=== PATIENT | female | born 1970 | race Asian ===

== ENCOUNTER 2017-11-11 08:58 | Emergency (ER) | payer BC ==
[2017-11-11 09:08] VITALS: TEMP 97.9
[2017-11-11] MEDS ORDERED: SODIUM CHLORIDE 0.9% 500 ML IV STA (09:30)
--- NOTE | 2017-11-11 09:42 | ED ---
Extremity Problem HPI - General Chief complaint: Extremity Problem,Nontraumatic Stated complaint: Left Arm Numbness Time Seen by Provider: 11/11/17 09:10 Source: patient Mode of arrival: ambulatory Limitations: no limitations - History of Present Illness Initial comments: 47-year-old female patient presents the emergency department today for evaluation of increased numbness and tingling to the left arm. The patient states that approximately 0806 this morning she had onset of numbness and tingling to the left medial arm. Patient states that the sensation extended from about the mid upper arm down to the hand involving the last 3 fingers. Patient states that the sensation lasted for approximately 2 minutes. States that she was speaking to her during this time and had no difficulty with speech. She states that she did not have any evident weakness of the arm. She denies any headache, dizziness, facial numbness or tingling, blurred vision , or double vision. Patient does have a history of hypertension and neck problems with cervical radiculopathy; she states that the sensation is different from her usual numbness and tingling. Patient denies any recent rash , fever, chills, shortness breath, chest pain, abdominal pain, nausea, vomiting , diarrhea, constipation, back pain, hematuria, dysuria, urinary urgency, urinary frequency, or any other complaints. - Related Data Home Medications Medication Instructions Recorded Confirmed Hydrochlorothiazide [Hydrodiuril] 25 mg PO DAILY 11/11/17 11/11/17 Metoprolol Tartrate [Lopressor] 100 mg PO BID 11/11/17 11/11/17 Allergies Allergy/AdvReac Type Severity Reaction Status Date / Time No Known Allergies Allergy Verified 11/11/17 09:08 Review of Systems ROS Statement: Those systems with pertinent positive or pertinent negative responses have been documented in the HPI. ROS Other: All systems not noted in ROS Statement are negative. Past Medical History Past Medical History: Hypertension Additional Past Medical History / Comment(s): neck injury History of Any Multi-Drug Resistant Organisms: None Reported Past Surgical History: Section Past Psychological History: No Psychological Hx Reported Smoking Status: Never smoker Past Alcohol Use History: None Reported Past Drug Use History: None Reported General Exam Limitations: no limitations General appearance: alert, in no apparent distress, other (This is a well- developed, well-nourished adult female patient in no acute distress. Vital signs upon presentation are temperature 97.9F, pulse 87, respirations 16, blood pressure 154/79, pulse ox 98% on room air.) Eye exam: Present: normal appearance, PERRL, EOMI. Absent: scleral icterus, conjunctival injection, periorbital swelling ENT exam: Present: normal exam, normal oropharynx, mucous membranes moist Respiratory exam: Present: normal lung sounds bilaterally. Absent: respiratory distress, wheezes, rales, rhonchi, stridor Cardiovascular Exam: Present: regular rate, normal rhythm, normal heart sounds. Absent: systolic murmur, diastolic murmur, rubs, gallop, clicks GI/Abdominal exam: Present: soft, normal bowel sounds. Absent: distended, tenderness, guarding, rebound, rigid Neurological exam: Present: alert, oriented X3, CN II-XII intact Expanded Speech: Present: fluid speech Cranial nerves: EOM's Intact: Normal, Tongue Deviation: Normal, Nystagmus: Normal, Facial Sensation: Normal Motor strength exam: RUE: 5, LUE: 5, RLE: 5, LLE: 5 Eye Response: (4) open spontaneously Motor Response: (6) obeys commands Verbal Response: (5) oriented Randi Total: 15 Psychiatric exam: Present: normal affect, normal mood Skin exam: Present: warm, dry, intact, normal color. Absent: rash Course Vital Signs 11/11/17 09:03 Temperature 97.9 F Pulse Rate 87 Respiratory 16 Rate Blood Pressure 154/79 O2 Sat by Pulse 98 Oximetry Medical Decision Making - Medical Decision Making 47-year-old female patient presented to the emergency department today for evaluation of numbness and tingling to the medial aspect of the left arm. Patient symptoms lasted for approximately 2 minutes and resolved. Physical examination at this time is unremarkable. Patient is neurologically intact with no current signs or symptoms of CVA. Labs reviewed and did reveal a mildly elevated blood sugar at 157 and mildly elevated liver enzymes. CT of the brain was performed, showed no acute intracranial abdomen ALLERGIES. Patient was informed of all results. She is instructed to follow-up with her primary care physician for possible carotid ultrasound and echo. She is instructed to inform her physician of her elevated blood sugar and liver enzymes have retesting done. Patient was educated regarding TIA. Return parameters were discussed in detail. She verbalizes understanding and agrees with this plan. - Lab Data Result diagrams: 11/11/17 10:01 11/11/17 09:59 Lab Results 11/11/17 11/11/17 11/11/17 Range/Units 09:59 09:59 10:01 WBC 10.5 (3.8-10.6) k/uL RBC 4.71 (3.80-5.40) m/uL Hgb 12.8 (11.4-16.0) gm/dL Hct 40.1 (34.0-46.0) % MCV 85.0 (80.0-100.0) fL MCH 27.1 (25.0-35.0) pg MCHC 31.9 (31.0-37.0) g/dL RDW 14.4 (11.5-15.5) % Plt Count 409 (150-450) k/uL Neutrophils % 78 % Lymphocytes % 15 % Monocytes % 4 % Eosinophils % 1 % Basophils % 0 % Neutrophils # 8.1 H (1.3-7.7) k/uL Lymphocytes # 1.6 (1.0-4.8) k/uL Monocytes # 0.4 (0-1.0) k/uL Eosinophils # 0.1 (0-0.7) k/uL Basophils # 0.0 (0-0.2) k/uL PT (9.0-12.0) sec INR (<1.2) APTT (22.0-30.0) sec Sodium 138 (137-145) mmol/L Potassium 3.5 (3.5-5.1) mmol/L Chloride 103 (98-107) mmol/L Carbon Dioxide 27 (22-30) mmol/L Anion Gap 8 mmol/L BUN 11 (7-17) mg/dL Creatinine 0.70 (0.52-1.04) mg/dL Est GFR (CKD-EPI)AfAm >90 (>60 ml/min/1.73 sqM) Est GFR (CKD-EPI)NonAf >90 (>60 ml/min/1.73 sqM) Glucose 157 H (74-99) mg/dL Calcium 9.0 (8.4-10.2) mg/dL Total Bilirubin 0.5 (0.2-1.3) mg/dL AST 46 H (14-36) U/L ALT 66 H (9-52) U/L Alkaline Phosphatase 73 (38-126) U/L Total Creatine Kinase 59 (30-135) U/L CK-MB (CK-2) 0.3 (0.0-2.4) ng/mL CK-MB (CK-2) Rel Index 0.5 Troponin I <0.012 (0.000-0.034) ng/mL Total Protein 7.0 (6.3-8.2) g/dL Albumin 3.6 (3.5-5.0) g/dL 11/11/17 Range/Units 10:01 WBC (3.8-10.6) k/uL RBC (3.80-5.40) m/uL Hgb (11.4-16.0) gm/dL Hct (34.0-46.0) % MCV (80.0-100.0) fL MCH (25.0-35.0) pg MCHC (31.0-37.0) g/dL RDW (11.5-15.5) % Plt Count (150-450) k/uL Neutrophils % % Lymphocytes % % Monocytes % % Eosinophils % % Basophils % % Neutrophils # (1.3-7.7) k/uL Lymphocytes # (1.0-4.8) k/uL Monocytes # (0-1.0) k/uL Eosinophils # (0-0.7) k/uL Basophils # (0-0.2) k/uL PT 10.2 (9.0-12.0) sec INR 1.0 (<1.2) APTT 24.0 (22.0-30.0) sec Sodium (137-145) mmol/L Potassium (3.5-5.1) mmol/L Chloride (98-107) mmol/L Carbon Dioxide (22-30) mmol/L Anion Gap mmol/L BUN (7-17) mg/dL Creatinine (0.52-1.04) mg/dL Est GFR (CKD-EPI)AfAm (>60 ml/min/1.73 sqM) Est GFR (CKD-EPI)NonAf (>60 ml/min/1.73 sqM) Glucose (74-99) mg/dL Calcium (8.4-10.2) mg/dL Total Bilirubin (0.2-1.3) mg/dL AST (14-36) U/L ALT (9-52) U/L Alkaline Phosphatase (38-126) U/L Total Creatine Kinase (30-135) U/L CK-MB (CK-2) (0.0-2.4) ng/mL CK-MB (CK-2) Rel Index Troponin I (0.000-0.034) ng/mL Total Protein (6.3-8.2) g/dL Albumin (3.5-5.0) g/dL - EKG Data -: EKG Interpreted by Me EKG Comments: EKG obtained at 09 37 shows normal sinus rhythm with prolonged QT interval. Ventricular rate is 82, VA interval 162, QRS duration 86, QT 400, QTC 467. No evidence of ST elevation or depression. - Radiology Data Radiology results: report reviewed, image reviewed CT of the brain without contrast was performed. Central structures are midline. There is no evidence of hydrocephalus. No acute focal lesion, mass effect, or midline shift is seen. I do not see evidence of intracranial blood. Visualized portions of the paranasal sinuses and mastoids are clear. The bony calvarium is intact. Impression by Dr. Gordon shows no acute intracranial abnormality. Disposition Clinical Impression: TIA (transient ischemic attack), Paresthesia Disposition: HOME SELF-CARE Condition: Good Instructions: Transient Ischemic Attack (ED), Paresthesia (ED) Additional Instructions: Continue taking a baby aspirin daily. Follow-up with your primary care physician to discuss further testing such as carotid ultrasound and echo. Return here immediately for any new, worsening, or concerning symptoms. Is patient prescribed a controlled substance at d/c from ED?: No Referrals: Carlos Jamil MD [Primary Care Provider] - 1-2 days Time of Disposition: 11:29
[2017-11-11 10:21] LABS: Basophils % (A) 0 %; Eosinophils # (A) 0.1 k/uL (0-0.7); Eosinophils % (A) 1 %; HCT 40.1 % (34.0-46.0); HGB 12.8 gm/dL (11.4-16.0); Lymphocytes # (A) 1.6 k/uL (1.0-4.8); Lymphocytes % (A) 15 %; MCH 27.1 pg (25.0-35.0); MCHC 31.9 g/dL (31.0-37.0); Mean Platelet Volume 7.2; Monocytes # (A) 0.4 k/uL (0-1.0); Monocytes % (A) 4 %; Neutrophils # (A) 8.1 k/uL (1.3-7.7); Neutrophils % (A) 78 %; Platelet Count 409 k/uL (150-450); RBC 4.71 m/uL (3.80-5.40); RDW 14.4 % (11.5-15.5); WBC 10.5 k/uL (3.8-10.6)
[2017-11-11 10:29] LABS: Prothrombin Time 10.2 sec (9.0-12.0)
[2017-11-11 10:33] LABS: ALT 66 U/L (9-52); AST 46 U/L (14-36); Albumin 3.6 g/dL (3.5-5.0); Alkaline Phosphatase 73 U/L (38-126); Anion Gap 8 mmol/L; Blood Urea Nitrogen 11 mg/dL (7-17); Carbon Dioxide 27 mmol/L (22-30); Chloride 103 mmol/L (98-107); Glucose 157 mg/dL (74-99); Potassium 3.5 mmol/L (3.5-5.1); Sodium 138 mmol/L (137-145); Total Bilirubin 0.5 mg/dL (0.2-1.3)
[2017-11-11 10:47] LABS: Creatine Kinase 59 U/L (30-135)
--- NOTE | 2017-11-11 10:51 | CT ---
EXAMINATION TYPE: CT brain wo con DATE OF EXAM: 11/11/2017 COMPARISON: NONE HISTORY: Lt arm numbness CT DLP: 1034.6 mGycm Automated exposure control for dose reduction was used. FINDINGS: Central structures are midline. There is no evidence of hydrocephalus. No acute focal lesion, mass ef fect or midline shift is seen. I do not see evidence of intracranial blood. Visualized portions of the paranasal sinuses and mastoids are clear. The bony calvarium is intact. IMPRESSION: NO ACUTE INTRACRANIAL ABNORMALITY.
[2017-11-11 11:01] LABS: Creatine Kinase MB 0.3 ng/mL (0.0-2.4); Troponin I <0.012 ng/mL (0.000-0.034)
[2017-11-11 11:58] VITALS: BP 163/90; PULSE 75; RESP 18
== END 2017-11-11 11:59 | disposition home or self-care (01) ==
LOC: EC 08:58
DX: G45.9 Transient cerebral ischemic attack, unspecified (principal); R73.9 Hyperglycemia, unspecified; R94.5 Abnormal results of liver function studies; I10 Essential (primary) hypertension; R40.2142 Coma scale, eyes open, spontaneous, at arrival to emergency department; R40.2252 Coma scale, best verbal response, oriented, at arrival to emergency department; R40.2362 Coma scale, best motor response, obeys commands, at arrival to emergency department; Z79.899 Other long term (current) drug therapy
CPT/HCPCS: 36415; 70450; 80053; 82550; 82553; 84484; 85025; 85610; 85730; 93005; 96360; 96361; 99284

== ENCOUNTER 2017-12-22 15:47 | Emergency (ER) | payer BC ==
--- NOTE | 2017-12-22 17:26 | ED ---
General Adult HPI - General Chief complaint: Skin/Abscess/Foreign Body Stated complaint: poss scabies Time Seen by Provider: 12/22/17 16:44 Source: patient, RN notes reviewed Mode of arrival: ambulatory Limitations: no limitations - History of Present Illness Initial comments: Patient's a 47-year-old female presenting to the emergency room today with a chief complaint of possible scabies infection. 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 Patient states that a few days later she began having bone points to her legs. She states that she noticed small bump. She states they checked the office did not find anything else. She states that she had a regular appointment with the family physician. She states that she was diagnosed with scabies at that time placed on permethrin cream. She states she did do treatment of permethrin. She states she was unclear directions and up to 3 days later as well. She states that she feels that she react to this in the next day felt like things were jumping off of her skin. Patient states that she follow back up with family doctor and was started on ivermectin. Patient states that she is supposed take her second dose in 2 days. Patient states she still experiencing symptoms. She states some of the areas have healed up. She states normally house has become infected. States she did go to [facility] his specialist and was told to continue with current treatments. She states that she called [facility] and spoke with someone who told her that there will be a specialist here to be able to see her. She states this is the reason that she came today. Patient is having difficult time at Night because of the symptoms. Patient denies any recent fever, chills, shortness of breath, chest pain, back pain, abdominal pain , nausea or vomiting, numbness or tingling, headaches or visual changes, or any other complaints. - Related Data Home Medications Medication Instructions Recorded Confirmed Hydrochlorothiazide [Hydrodiuril] 25 mg PO DAILY 11/11/17 11/11/17 Metoprolol Tartrate [Lopressor] 100 mg PO BID 11/11/17 11/11/17 Allergies Allergy/AdvReac Type Severity Reaction Status Date / Time No Known Allergies Allergy Verified 12/22/17 16:08 Review of Systems ROS Statement: Those systems with pertinent positive or pertinent negative responses have been documented in the HPI. ROS Other: All systems not noted in ROS Statement are negative. Past Medical History Past Medical History: Hypertension Additional Past Medical History / Comment(s): neck injury History of Any Multi-Drug Resistant Organisms: None Reported Past Surgical History: Section Past Psychological History: No Psychological Hx Reported Smoking Status: Never smoker Past Alcohol Use History: None Reported Past Drug Use History: None Reported General Exam - General Exam Comments Initial Comments: General: The patient is awake and alert, in no distress, and does not appear acutely ill. Eye: extra-ocular movements are intact. There is normal conjunctiva bilaterally. No signs of icterus. Ears, nose, mouth and throat: There are moist mucous membranes and no oral lesions. Neck: The neck is supple. Musculoskeletal: Normal ROM, no tenderness. Strength 5/5. Sensation intact. Pulses equal bilaterally 2+. Neurological: A&O x 3. CN II-XII intact, There are no obvious motor or sensory deficits. Coordination appears grossly intact. Speech is normal. Skin: Skin is warm and dry and intact. 2 small scabbed areas to the medial aspect of the left ankle. No other rashes or bites visualized. No burrowing. Psychiatric: Cooperative, appropriate mood & affect, normal judgment. Limitations: no limitations Course Vital Signs 12/22/17 16:00 Temperature 98.2 F Pulse Rate 84 Respiratory 18 Rate Blood Pressure 129/75 O2 Sat by Pulse 96 Oximetry Medical Decision Making - Medical Decision Making Patient is advised continue current treatment. Follow-up with both general science teacher and infectious disease. Advised to return to emergency room for any other concerns. Disposition Clinical Impression: Insect bite Disposition: HOME SELF-CARE Condition: Good Instructions: Scabies (ED) Additional Instructions: Please continue his current treatments and follow-up with both general science teacher and infectious disease as needed. Please return to emergency room for any other concerns. Is patient prescribed a controlled substance at d/c from ED?: No Referrals: Carlos Jamil MD [Primary Care Provider] - 1-2 days Carmelo Williamson MD [STAFF PHYSICIAN] - 1-2 days Cecily Lux MD [STAFF PHYSICIAN] - 1-2 days Time of Disposition: 17:25
[2017-12-22 17:56] VITALS: BP 139/70; PULSE 74; RESP 16; TEMP 97.8
== END 2017-12-22 17:55 | disposition home or self-care (01) ==
LOC: EC 15:47
DX: S90.562A Insect bite (nonvenomous), left ankle, initial encounter (principal); I10 Essential (primary) hypertension; Z79.899 Other long term (current) drug therapy; W57.XXXA Bitten or stung by nonvenomous insect and other nonvenomous arthropods, initial encounter
CPT/HCPCS: 99282

== ENCOUNTER 2018-01-26 18:51 | Emergency (ER) | payer BC ==
[2018-01-26] MEDS ORDERED: SODIUM CHLORIDE 0.9% 1,000 ML IV ONE (19:23)
--- NOTE | 2018-01-26 19:26 | ED ---
Syncope HPI - General Chief Complaint: Syncope Stated Complaint: Near Syncope Time Seen by Provider: 01/26/18 19:02 Source: patient Mode of arrival: EMS Limitations: no limitations - History of Present Illness Initial Comments: Patient is a 47-year-old female presents with a chief complaint of syncopal episode. Patient states that she was at [employer], began to feel very sleepy, and then woke up on the floor with a lot of people around her. Her was with her and states that the entire event lasted about 5 minutes. He states that the patient was unarousable for about 5 minutes, they later on the floor and with that her legs, and slowly the patient came awake. The patient states that she feels normal currently. She denies any pain or injury. The patient states that she has intentionally been losing weight. She states that she has lost about 30 pounds. She states that she is on blood pressure medication recently had to decrease her dose secondary to hypotension. - Related Data Home Medications Medication Instructions Recorded Confirmed Hydrochlorothiazide [Hydrodiuril] 25 mg PO DAILY 11/11/17 11/11/17 Metoprolol Tartrate [Lopressor] 100 mg PO BID 11/11/17 11/11/17 Allergies Allergy/AdvReac Type Severity Reaction Status Date / Time No Known Allergies Allergy Verified 12/22/17 16:08 Review of Systems ROS Statement: Those systems with pertinent positive or pertinent negative responses have been documented in the HPI. ROS Other: All systems not noted in ROS Statement are negative. Cardiovascular: Reports: syncope Past Medical History Past Medical History: Hypertension Additional Past Medical History / Comment(s): neck injury History of Any Multi-Drug Resistant Organisms: None Reported Past Surgical History: Section Past Psychological History: No Psychological Hx Reported Smoking Status: Never smoker Past Alcohol Use History: None Reported Past Drug Use History: None Reported General Exam Limitations: no limitations General appearance: alert, in no apparent distress Head exam: Present: atraumatic, normocephalic Eye exam: Present: normal appearance, PERRL ENT exam: Present: normal exam, mucous membranes moist Neck exam: Present: normal inspection Respiratory exam: Present: normal lung sounds bilaterally. Absent: respiratory distress, wheezes Cardiovascular Exam: Present: regular rate, normal rhythm GI/Abdominal exam: Present: soft. Absent: distended, tenderness Rectal exam: Present: deferred Extremities exam: Present: normal inspection Back exam: Present: normal inspection Neurological exam: Present: alert, oriented X3, CN II-XII intact. Absent: motor sensory deficit Psychiatric exam: Present: normal affect, normal mood Skin exam: Present: warm, dry, intact Course Vital Signs 01/26/18 01/26/18 01/26/18 18:56 20:37 21:03 Temperature 98.8 F Pulse Rate 68 69 74 Respiratory 18 18 18 Rate Blood Pressure 135/65 156/78 136/76 O2 Sat by Pulse 93 L 98 98 Oximetry Medical Decision Making - Medical Decision Making Patient presents with chief complaint of a syncopal episode. On initial evaluation, vital signs are stable, patient is in no acute distress. Patient currently asymptomatic. Patient to be evaluated with basic labs, troponin, EKG , and chest x-ray. Patient has no neural deficit at this time, central neurologic process unlikely. Considered PE in the setting of syncope however patient is very low risk and pertinent negative. EKG performed at 1926 shows normal sinus rhythm with a rate of 70 beats per minutes. EKG is otherwise unremarkable. 9:31 PM Lab evaluation of this patient is unremarkable. Troponin is negative. On reevaluation, the patient is awake, alert, oriented. She is able to really well without assistance. A long discussion with the patient regarding possible causes of her symptoms. I do not believe there is any life-threatening cause of the patient's syncope today. She was instructed to follow up with primary care in 1-2 days, return to the emergency department if symptoms worsen or change. - Lab Data Result diagrams: 01/26/18 19:04 01/26/18 19:04 Lab Results 01/26/18 01/26/18 01/26/18 Range/Units 19:04 19:04 19:04 WBC 11.6 H (3.8-10.6) k/uL RBC 4.82 (3.80-5.40) m/uL Hgb 12.1 (11.4-16.0) gm/dL Hct 38.4 (34.0-46.0) % MCV 79.8 L (80.0-100.0) fL MCH 25.2 (25.0-35.0) pg MCHC 31.6 (31.0-37.0) g/dL RDW 14.6 (11.5-15.5) % Plt Count 441 (150-450) k/uL Neutrophils % 77 % Lymphocytes % 13 % Monocytes % 4 % Eosinophils % 4 % Basophils % 0 % Neutrophils # 8.9 H (1.3-7.7) k/uL Lymphocytes # 1.5 (1.0-4.8) k/uL Monocytes # 0.5 (0-1.0) k/uL Eosinophils # 0.4 (0-0.7) k/uL Basophils # 0.1 (0-0.2) k/uL Hypochromasia Slight Sodium 138 (137-145) mmol/L Potassium 3.7 (3.5-5.1) mmol/L Chloride 101 (98-107) mmol/L Carbon Dioxide 25 (22-30) mmol/L Anion Gap 12 mmol/L BUN 14 (7-17) mg/dL Creatinine 0.76 (0.52-1.04) mg/dL Est GFR (CKD-EPI)AfAm >90 (>60 ml/min/1.73 sqM) Est GFR (CKD-EPI)NonAf >90 (>60 ml/min/1.73 sqM) Glucose 212 H (74-99) mg/dL Calcium 9.4 (8.4-10.2) mg/dL Magnesium 2.0 (1.6-2.3) mg/dL Troponin I <0.012 (0.000-0.034) ng/mL Disposition Clinical Impression: Vasovagal syncope Disposition: HOME SELF-CARE Condition: Good Instructions: Syncope (ED) Is patient prescribed a controlled substance at d/c from ED?: No Referrals: Carlos Jamil MD [Primary Care Provider] - 1-2 days
[2018-01-26 19:46] LABS: Basophils # (A) 0.1 k/uL (0-0.2); Basophils % (A) 0 %; Eosinophils # (A) 0.4 k/uL (0-0.7); Eosinophils % (A) 4 %; HCT 38.4 % (34.0-46.0); HGB 12.1 gm/dL (11.4-16.0); Hypochromasia Slight; Lymphocytes # (A) 1.5 k/uL (1.0-4.8); Lymphocytes % (A) 13 %; MCH 25.2 pg (25.0-35.0); MCHC 31.6 g/dL (31.0-37.0); MCV 79.8 fL (80.0-100.0); Mean Platelet Volume 7.6; Monocytes # (A) 0.5 k/uL (0-1.0); Monocytes % (A) 4 %; Neutrophils # (A) 8.9 k/uL (1.3-7.7); Neutrophils % (A) 77 %; Platelet Count 441 k/uL (150-450); RBC 4.82 m/uL (3.80-5.40); RDW 14.6 % (11.5-15.5); WBC 11.6 k/uL (3.8-10.6)
[2018-01-26 20:08] LABS: Anion Gap 12 mmol/L; Blood Urea Nitrogen 14 mg/dL (7-17); Calcium 9.4 mg/dL (8.4-10.2); Carbon Dioxide 25 mmol/L (22-30); Chloride 101 mmol/L (98-107); Glucose 212 mg/dL (74-99); Potassium 3.7 mmol/L (3.5-5.1); Sodium 138 mmol/L (137-145)
--- NOTE | 2018-01-26 20:45 | XR ---
EXAMINATION TYPE: XR chest 2V DATE OF EXAM: 01/26/2018 COMPARISON: NONE HISTORY: Cough and congestion TECHNIQUE: Frontal and lateral views of the chest are obtained. FINDINGS: There is no focal air space opacity, pleural effusion, or pneumothorax seen. The cardiac silhouette size is upper limits of normal. The osseous structures are intact. IMPRESSION: No acute cardiopulmonary process.
[2018-01-26 21:58] VITALS: BP 143/83; PULSE 75; RESP 17; TEMP 98.7
== END 2018-01-26 22:03 | disposition home or self-care (01) ==
LOC: EC 18:51
DX: R55 Syncope and collapse (principal); I10 Essential (primary) hypertension; Z79.899 Other long term (current) drug therapy
CPT/HCPCS: 36415; 71046; 80048; 83735; 84484; 85025; 93005; 96360; 99285